=== PATIENT | male | born 1970 | race Caucasian/White ===

== ENCOUNTER 2024-02-18 10:37 | Day surgery (SDC) | payer BC ==
[2024-02-14 12:30] LABS: BASOPHILS # (AUTO) 0.1 X10'3 (0-0.2); BASOPHILS % (AUTO) 0.6 % (0-1); EOSINOPHILS # (AUTO) 0.1 X10'3 (0-0.9); EOSINOPHILS % (AUTO) 1.4 % (0-6); HEMATOCRIT 47.4 % (42.0-52.0); HEMOGLOBIN 16.6 g/dl (14.0-17.9); LYMPHOCYTES # (AUTO) 2.9 X10'3 (1.1-4.8); LYMPHOCYTES % (AUTO) 31.5 % (21-51); MEAN CORPUSCULAR VOLUME 91.6 FL (78-98); MEAN PLATELET VOLUME 7.1 FL (7.4-10.4); MONOCYTES # (AUTO) 0.5 X10'3 (0-0.9); MONOCYTES % (AUTO) 5.6 % (2-12); NEUTROPHILS # (AUTO) 5.6 X10'3 (1.8-7.7); NEUTROPHILS % (AUTO) 60.9 % (42-75); PLATELET COUNT 184 X10'3 (140-440); RED BLOOD COUNT 5.18 X10'6 (4.70-6.10); RED CELL DISTRIBUTION WIDTH 13.3 % (11.5-14.5); WHITE BLOOD COUNT 9.2 X10'3 (4.5-11.0)
[2024-02-14 12:41] LABS: APTT 25 SECONDS (22-32); PROTHROMBIN TIME 10.5 SECONDS (9.0-12.0)
[2024-02-14 12:43] LABS: ALBUMIN 3.5 G/DL (3.4-5.0); ANION GAP 11 (8-16); BLOOD UREA NITROGEN 16 MG/DL (7-18); BUN/CREATININE RATIO 14.2 (10.0-20.0); CALCIUM 8.8 MG/DL (8.5-10.1); CHLORIDE 105 MMOL/L (99-107); CHOL/HDL RATIO 2.4 (0.00-4.99); CHOLESTEROL 131 MG/DL (0-200); CREATININE 1.13 MG/DL (0.60-1.10); GLUCOSE 113 MG/DL (70-104); HDL CHOLESTEROL 55 MG/DL (35-60); LDL CHOLESTEROL 63 MG/DL (50-100); POTASSIUM 4.1 MMOL/L (3.5-5.1); SODIUM 140 MMOL/L (135-145); TRIGLYCERIDES 102 MG/DL (20-135); eGFR 67 ML/MIN
[~2024-02-18] VITALS: Ht 177.8 cm; Wt 118.8 kg
[2024-02-18] VITALS (8 sets, daily range): BP systolic 117–150; BP diastolic 65–90; PULSE 61–73; RESP 15–16; TEMP 98.2; O2SAT 95–98
[2024-02-18] MEDS ORDERED: ATOR40TA72 PO (11:06)
[2024-02-18] MEDS ORDERED: ACET-3414 PO (11:06)
[2024-02-18] MEDS ORDERED: LOSA100T58 PO (11:06)
[2024-02-18] MEDS ORDERED: ASPI-611 PO (11:06)
[2024-02-18] MEDS ORDERED: ALBU10.7 INH (11:06)
[2024-02-18] MEDS ORDERED: BECL10.62 INH (11:06)
[2024-02-18] MEDS ORDERED: OMEP40CA21 PO (11:06)
[2024-02-18] MEDS ORDERED: FLUT16SP26 NAS (11:06)
[2024-02-18] MEDS: normal saline 1,000 ML IV SCH (11:50)
[2024-02-18] MEDS: diphenhydrAMINE 25mg capsule PO PRN (11:50)
[2024-02-18] MEDS: LORazepam 0.5 MG tablet PO PRN (11:50)
[2024-02-18] MEDS ORDERED: fentaNYL/PF 50MCG/1 ML 2ML syringe ONE (13:56)
[2024-02-18] MEDS ORDERED: heparin 1,000unit/ml 10ml vial 0 ML ONE (13:56)
[2024-02-18] MEDS ORDERED: midazolam 1 mg/ML 2ml injection ONE (13:56)
[2024-02-18] MEDS ORDERED: verapamil 2.5 mg/ml inj IV ONE (13:56)
[2024-02-18] MEDS ORDERED: iohexol 350MG/ML 100ml bottle IV ONE ×2 (13:56→14:31)
[2024-02-18] MEDS ORDERED: LIDOcaine 1% (10mg/ml) 2ml vial ONE ×2 (13:56→14:21)
[2024-02-18] MEDS ORDERED: nitroGLYCERIN 500mcg/5mL D5W 5 ML IV ONE (14:11)
[2024-02-18] MEDS ORDERED: heparin 1,000unit/ml 10ml vial 10 ML ONE (14:33)
[2024-02-18] MEDS ORDERED: iohexol 350 MG/ML 50ML vial IV ONE (14:50)
[2024-02-18] MEDS ORDERED: aspirin 325mg tablet ONE (14:53)
[2024-02-18] MEDS ORDERED: clopidogrel 300mg tablet ONE (14:53)
[2024-02-18] MEDS ORDERED: HYDROcodone/acetaminophen 5mg/325mg tablet PO PRN (15:50)
[2024-02-18] MEDS ORDERED: HYDROcodone/acetaminophen 10/325mg tab PO PRN (15:50)
== END 2024-02-18 17:00 | disposition home or self-care (01) ==
LOC: SSTAY O 10:37
PROVIDERS: ATTEND Student in an Organized Health Care Education/Training Program
DX: R06.02 Shortness of breath (principal); I10 Essential (primary) hypertension; I25.10 Atherosclerotic heart disease of native coronary artery without angina pectoris; E78.00 Pure hypercholesterolemia, unspecified; Z79.82 Long term (current) use of aspirin; Z79.899 Other long term (current) drug therapy
CPT/HCPCS: 36415; 80048; 80061; 85025; 85610; 85730; 93005; 93458; 99152; 99153; A6258; C1874; C9600; J1644; J2250; J3010; J3490; J7030; Q0163; Q9967; A6402; C1725; C1751; C1769; C1894; C9601